=== PATIENT | female | born 1980 | race Caucasian/White ===

== ENCOUNTER → 2018-11-04 | Outpatient (CLI) | payer BC ==
--- NOTE | 2018-11-04 16:56 | XR ---
EXAMINATION TYPE: XR Hip Limited LT DATE OF EXAM: 11/04/2018 COMPARISON: NONE HISTORY: Pain TECHNIQUE: 2 views submitted FINDINGS: There is no evidence of erosive change or acute fracture. Mild concentric narrowing of the joint space. There is hypertrophic change of the acetabulum. IMPRESSION: 1. Mild arthropathy. Correlate for femoral acetabular impingement.
== END | disposition home or self-care (01) ==
LOC: RADXRMAIN 14:19
PROVIDERS: ATTEND Physician Assistant Medical
DX: M16.12 Unilateral primary osteoarthritis, left hip (principal); M54.5 Low back pain
CPT/HCPCS: 73501

== ENCOUNTER → 2021-02-07 | Outpatient (CLI) | payer BC ==
--- NOTE | 2021-02-07 15:31 | XR ---
EXAM TYPE: LUMBAR SPINE X RAY SERIES COMPARISON: NONE HISTORY: Pain TECHNIQUE: 4 views are submitted. FINDINGS: Alignment is anatomic. The pedicles are intact. The transverse processes are intact. There is mult ilevel degenerative disc disease with curvature of the spine. Incidental note made of a port catheter . Severe degenerative disc disease L3-L4 with multilevel facet arthropathy. IMPRESSION: 1. Multilevel facet arthropathy and moderate to severe degenerative disc disease.
--- NOTE | 2021-02-07 15:32 | XR ---
EXAMINATION TYPE: XR thoracic spine 2V DATE OF EXAM: 02/07/2021 COMPARISON: NONE HISTORY: Pain TECHNIQUE: 3 views submitted FINDINGS: Alignment is anatomic. There is no compression deformities. There is a severe scoliotic curvature of the spine with multilevel hypertrophic and degenerative changes. Next IMPRESSION: Scoliosis with degenerative disc disease.
== END | disposition home or self-care (01) ==
LOC: RADXRMAIN 14:22
PROVIDERS: ATTEND Physician Assistant Medical
DX: M47.816 Spondylosis without myelopathy or radiculopathy, lumbar region (principal); M51.36 Other intervertebral disc degeneration, lumbar region; M51.34 Other intervertebral disc degeneration, thoracic region; M41.84 Other forms of scoliosis, thoracic region
CPT/HCPCS: 72070; 72110

== ENCOUNTER → 2021-06-27 | Outpatient (CLI) | payer BC ==
--- NOTE | 2021-06-30 11:03 | MM ---
Reason for exam: screening (asymptomatic). Baseline mammogram. History: Patient is nulliparous. Took hormonal contraceptives beginning at age 15. Taking other hormone beginning at age 36. Physical Findings: Nurse did not find any significant physical abnormalities on exam. MG 3D Screening Mammo W/Cad Bilateral CC and MLO view(s) were taken. There are scattered fibroglandular densities. There is no discrete abnormality. ASSESSMENT: Negative, BI-RAD 1 RECOMMENDATION: Routine screening mammogram of both breasts in 1 year.
== END | disposition home or self-care (01) ==
LOC: RADMAMWWP 14:24
PROVIDERS: ATTEND Obstetrics & Gynecology
DX: Z12.31 Encounter for screening mammogram for malignant neoplasm of breast (principal)
CPT/HCPCS: 77063; 77067

== ENCOUNTER → 2023-10-13 | Outpatient (CLI) | payer OTHER | END | disposition home or self-care (01) | LOC: LABWHC1 10:38 | PROVIDERS: ATTEND Psychiatry & Neurology Neurology | DX: R20.0 Anesthesia of skin (principal); R20.2 Paresthesia of skin | CPT/HCPCS: 36415; 82607; 82746 ==

== ENCOUNTER → 2023-10-13 | Outpatient (CLI) | payer OTHER ==
[2023-10-13 14:43] LABS: BUN/Creat Ratio 17.11 Ratio (12.00-20.00); Blood Urea Nitrogen 15.4 mg/dL (9.0-27.0); Carbon Dioxide 24.3 mmol/L (21.6-31.8); Chloride 100 mmol/L (96-109); Glucose 101 mg/dL (70-110); Potassium 4.3 mmol/L (3.5-5.5); Sodium 139 mmol/L (135-145)
[2023-10-13 14:46] LABS: Basophils # (A) 0.04 X 10*3/uL (0.00-0.10); Basophils % (A) 0.7 %; Eosinophils # (A) 0.08 X 10*3/uL (0.04-0.35); Eosinophils % (A) 1.5 %; HCT 39.7 % (37.2-46.3); HGB 13.1 g/dL (12.0-15.0); Lymphocytes # (A) 1.48 X 10*3/uL (0.90-5.00); Lymphocytes % (A) 26.9 %; MCH 33.8 pg (27.0-32.0); MCV 102.3 FL (80.0-97.0); Mean Platelet Volume 11.2 FL (9.5-12.2); Monocytes # (A) 0.41 X 10*3/uL (0.20-1.00); Monocytes % (A) 7.5 %; NRBC Per 100 WBC 0 X 10*3/uL (0.00-0.01); Neutrophils # (A) 3.47 X 10*3/uL (1.80-7.70); Platelet Count 176 X 10*3/uL (140-440); RBC 3.88 X 10*6/uL (4.10-5.20); RDW 14.7 % (11.5-14.5)
[2023-10-13 15:12] LABS: INR 1.02 sec (0.93-1.11)
== END | disposition home or self-care (01) ==
LOC: LABPAT 10:28
PROVIDERS: ATTEND Orthopaedic Surgery
DX: Z01.818 Encounter for other preprocedural examination (principal); M17.12 Unilateral primary osteoarthritis, left knee; Z22.322 Carrier or suspected carrier of Methicillin resistant Staphylococcus aureus
CPT/HCPCS: 36415; 80048; 85025; 85610; 87070; 93005

== ENCOUNTER → 2023-11-05 | Outpatient (CLI) | payer OTHER ==
--- NOTE | 2023-11-05 10:24 | XR ---
EXAMINATION TYPE: XR scoliosis survey DATE OF EXAM: 11/05/2023 10:15 AM CLINICAL INDICATION:Female, 43 years old with history of M41.35 SCOLIOSIS; [facility] COMPARISON: 02/07/2021 TECHNIQUE: Frontal and lateral views of the spine while standing. FINDINGS: Severe S-shaped scoliosis of the spine with dextroscoliosis thoracic spine with Duong angle 62 degrees and levoscoliosis lumbar spine with Duong angle 45 degrees. No vertebral anomalies. The vertebral bod y heights, intervertebral disc spaces, and vertebral column alignment are well maintained. No evidenc e of spondylolysis or spondylolisthesis. The lungs are clear. The aortic knob, cardiac apex, and gastric bubble are left-sided. The bowel gas pattern is unremarkable. Injection device is seen projecting over the pelvis compatible with patient' s lap band. No evidence of fracture. IMPRESSION: Progression of scoliosis with S-shaped spine with Duong angle 62 degrees and the thorax and 45 degrees and the lumbar spine.
--- NOTE | 2023-11-05 18:05 | CT ---
EXAMINATION TYPE: CT thor lumbar spine wo con DATE OF EXAM: 11/05/2023 COMPARISON: Radiograph same day HISTORY: 43-year-old female M41.35, BACK PAIN. HX OF SCOLIOSIS AND NEUROPATHY. TECHNIQUE: Contiguous axial scanning of the thoracic and lumbar spine without IV contrast. Coronal an d sagittal reconstructions performed. CT DLP: 2101.80 mGycm Automated exposure control for dose reduction was used. FINDINGS: Marked S-shaped scoliosis of the spine. The degree of curvature makes assessment on sagittal series d ifficult. Scattered dural calcifications in the upper to mid thoracic spine probably sequela of prior infectiou s or inflammatory etiology. Interbody ankylosis T3-T4. Moderate to severe degenerative disc disease L3-L4 and L4-L5 with disc space narrowing, bulging disc, and vacuum phenomenon. Overall moderate especially towards the left at T8-T9 and T9-T10. Multilevel hypertrophic facet arthropathy. Degenerative trace grade 1 anterolisthesis T4-T5. Vertebral body heights are preserved. On the right, the hypertrophic facet arthropathy contributes to variable neuroforaminal stenoses thro ughout but possibly severe at T4-T5, T5-T6, T6-T7, T7-T8, T8-T9. Moderate at T3-T4 and L3-L4. On the left, severe neuroforaminal stenosis at T8-T9, T9-T10, T10-T11, T11-T12. Moderate T2-T3, T3-T4 , T4-T5, L4-L5, and L5-S1. Combination of disc bulge and ligamentum flavum thickening may contribute to moderate to severe spina l canal stenosis at L3-L4 and moderate at L4-L5. Mild at T4-T5 along with a grade 1 anterolisthesis. Lap band device noted. IMPRESSION: 1. MARKED S-SHAPED SCOLIOSIS WITH ASSOCIATED ADVANCED HYPERTROPHIC FACET ARTHROPATHY THROUGHOUT. SCAT TERED MODERATE DEGENERATIVE DISC DISEASE ABOVE. 2. 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 3. MODERATE TO SEVERE SPINAL CANAL STENOSIS AT L3-L4, MODERATE AT L4-L5. MILD AT T4-T5. 4. VARIABLE NEURAL FORAMINAL STENOSES, ESPECIALLY SEVERE ALONG THE SIDES OF CONCAVITY OUTLINED ABO VE. 5. SOME DURAL CALCIFICATIONS WITHIN THE UPPER THORACIC SPINE MAY REFLECT SEQUELA OF PRIOR INFECTION O R INFLAMMATION.
== END | disposition home or self-care (01) ==
LOC: RADCTMAIN 09:29
PROVIDERS: ATTEND Orthopaedic Surgery
DX: M41.35 Thoracogenic scoliosis, thoracolumbar region (principal); M41.85 Other forms of scoliosis, thoracolumbar region; M47.816 Spondylosis without myelopathy or radiculopathy, lumbar region; M43.16 Spondylolisthesis, lumbar region; M48.061 Spinal stenosis, lumbar region without neurogenic claudication; M51.84 Other intervertebral disc disorders, thoracic region
CPT/HCPCS: 72082; 72128; 72131

== ENCOUNTER 2023-11-08 12:13 | Day surgery (SDC) | payer BC, OTHER ==
[2023-11-03 11:05] VITALS: BMI 41.1
--- NOTE | 2023-11-08 06:37 | HP ---
HISTORY AND PHYSICAL DATE OF SURGERY: 11/08/2023. HISTORY OF PRESENT ILLNESS: Morenita Hinton is a 43-year-old patient, who was seen with symptomatic left knee osteoarthritis. We discussed options regarding treatment. She elected to proceed with left total knee arthroplasty. Consent was obtained. Clearance was provided by Mary Carmen Johnson, nurse practitioner. PAST MEDICAL HISTORY: Osteoarthritis. PAST SURGICAL HISTORY: Left knee arthroscopy, wrist surgery, lap band surgery. DAILY MEDICATIONS: Trazodone. ALLERGIES: Antihistamine. SOCIAL HISTORY: Denies tobacco use. PHYSICAL EVALUATION OF LEFT KNEE: The left knee range of motion is -1/220 degrees. Mild effusion. Tenderness along lateral joint line. Lateral crepitus with range of motion. Ligaments appear stable. There is a genu valgum deformity of the knee. A distal neurovascular exam is intact. IMAGING STUDIES: Radiographs of the left knee reveal severe lateral compartment osteoarthritis. IMPRESSION: Left knee osteoarthritis. PLAN: Left total knee arthroplasty. MMODL / IJN: [id number] /
[~2023-11-08 12:13] MED LIST: LIDOCAINE 1% (10MG/ML) FOR IV START INTRADERMA PRN; TRANEXAMIC 1,000 MG/100ML-NACL 1,000 MG in SALINE 1 100ML.BAG IVPB PRN
[2023-11-08 12:51] LABS: Glucose,Whole Blood 112 mg/dL (70-110)
[2023-11-08] MEDS: DEXAMETHASONE SOD PHOSPHATE 4 MG/ML 1 ML VIAL IV ONE (12:57)
[2023-11-08] MEDS: ONDANSETRON 4 MG/2 ML VIAL IVP ONE (12:57)
[2023-11-08] MEDS: MELOXICAM 7.5 MG TAB PO PRN (12:59)
[2023-11-08] MEDS: ACETAMINOPHEN TAB 500 MG TAB PO PRN (12:59)
[2023-11-08] MEDS: LACTATED RINGERS 1,000 ML IV SCH ×3 (13:01→18:51)
[2023-11-08] MEDS: IV FLUID CONTINUATION 1,000 ML IV ONE (13:01)
[2023-11-08] MEDS: MIDAZOLAM 2 MG/2 ML VIAL IVP ONE (13:35)
[2023-11-08] MEDS ORDERED: fentaNYL (PF) 50 MCG/ML 2 ML AMP ONE (14:45)
[2023-11-08] MEDS ORDERED: NEOSTIGMINE 1 MG/ML 10 ML VIAL ONE (14:45)
[2023-11-08] MEDS ORDERED: KETAMINE HCL IN 0.9 % NACL 50 MG/5 ML SYRINGE ONE (14:45)
[2023-11-08] MEDS ORDERED: ROPIVACAINE 5 MG/ML 30 ML VIAL ONE (14:45)
[2023-11-08] MEDS ORDERED: MIDAZOLAM 2 MG/2 ML VIAL ONE (14:45)
[2023-11-08] MEDS ORDERED: GLYCOPYRROLATE 0.2 MG/ML 2 ML VIAL ONE (14:45)
[2023-11-08] MEDS ORDERED: HYDROmorphone (PF) 1 MG/ML ONE (14:45)
[2023-11-08] MEDS ORDERED: LIDOCAINE 1% INJ 10MG/ML (20 ML MDV) ONE (14:45)
[2023-11-08] MEDS ORDERED: DEXAMETHASONE SOD PHOSPHATE 4 MG/ML 1 ML VIAL ONE (14:45)
[2023-11-08] MEDS ORDERED: ROCURONIUM 10 MG/ML (5 ML VIAL) IV ONE (14:45)
[2023-11-08] MEDS ORDERED: SUCCINYLCHOLINE CHLORIDE 200 MG/10 ML VIAL IV ONE (14:45)
[2023-11-08] MEDS ORDERED: PROPOFOL 10 MG/ML 20 ML VIAL IV ONE (14:45)
[2023-11-08] MEDS ORDERED: TRANEXAMIC 1,000 MG/100ML-NACL PREMIX BAG ONE (14:45)
[2023-11-08] MEDS: ceFAZolin 1,000 MG in SODIUM CHLORIDE 0.9% 1,000 ML IRRIGATION ONE ×2 (15:14→15:16)
[2023-11-08] MEDS: LACTATED RINGERS 1,000 ML IV ONE (15:52)
[2023-11-08] MEDS ORDERED: HYDROmorphone 0.5 MG/0.5 ML SYRINGE IVP PRN ×2 (16:38)
[2023-11-08] MEDS ORDERED: NALOXONE 0.4 MG/ML 1 ML VIAL IV PRN (16:38)
[2023-11-08] MEDS ORDERED: ONDANSETRON 4 MG/2 ML VIAL IVP PRN (16:38)
[2023-11-08] MEDS ORDERED: HYDROcodone/APAP 5-325MG 1 EACH TAB PO PRN (16:38)
--- NOTE | 2023-11-08 16:38 | P.OP ---
Date of Procedure: 11/08/23 Preoperative Diagnosis: Left knee osteoarthritis Postoperative Diagnosis: Left knee osteoarthritis Procedure(s) Performed: Left total knee arthroplasty Implants: 1. DePuy attune size 6 left cruciate retaining cemented femur 2. DePuy attune size 6 fixed-bearing cemented tibial baseplate 3. DePuy attune size 6 fixed-bearing cruciate retaining 8 mm polyethylene tibial insert 4. DePuy attune 38 mm all polyethylene cemented patella Anesthesia: GETA, regional (Adductor canal catheter, iPAQ block) Surgeon: Harsh Whittaker Us Marketing Director #1: Geovanny Lowe Estimated Blood Loss (ml): 35 Pathology: none sent Condition: stable Disposition: PACU Indications for Procedure: 43-year-old patient seen with symptomatic left knee osteoarthritis. After having treatment options discussed, she elected to proceed with total knee arthroplasty. Operative Findings: See description of procedure Description of Procedure: Patient was taken to the operative suite after having an adductor canal catheter placed by the department of anesthesia. Patient underwent a general anesthetic by the department of anesthesia. Patient was given preoperative IV intake antibiotics and TXA. A well-padded tourniquet was placed about the left lower extremity. The lower extremity was then prepped and draped in the normal sterile orthopedic fashion. The extremity was elevated, a tourniquet was insufflated to 300. A standard anterior incision was made sharply through skin. Dissection was taken down through the subcutaneous soft tissues down to the extensor mechanism. A medial arthrotomy was performed, patella was everted and knee was flexed. There was advanced osteoarthritis noted. I introduced my distal intramedullary femoral drill. I then introduced the distal femoral cutting jig. Geovanny LUCIANO secured the cutting jig with 2 pins. I held retractors in position while Geovanny LUCIANO performed the distal femoral resection through the guide area we now removed her distal femoral cutting guide. We now placed our 4-in-1 femoral cutting block and positioned and it was secured with 2 pins by Geovanny LUCIANO while I held the block in position. The distal femoral finishing was now completed. A proximal tibial cutting guide was positioned. I held the guide in the appropriate position with both hands while Geovanny LUCIANO inserted stabilizing pins into the guide. Proximal tibial cut was made. We now placed a trial femoral component into position, along with an appropriate size tibial tray and insert. We now took the knee through range of motion and had full extension good flexion and good overall soft tissue balance noted. The patella was everted and stabilized with 2 towel clips held by Geovanny LUCIANO while I performed a flush with patellar quad tendon utilizing a fresh sawblade. We templated the patella, appropriate drill holes were made. An appropriate trial patella was positioned, knee was taken through full range of motion with the patella tracking very nicely. The trial patella was removed. Drill holes were made through the femoral component. All trial components were removed after marking off the appropriate rotation of the tibia. Retractors were now positioned along the proximal tibia. An appropriate keel punch was made with the appropriate size tibial guide by myself on Geovanny LUCIANO assisted by holding retractors. At this point appropriate size implants were chosen and opened. The joint was irrigated copiously with pulse lavage mechanical irrigation. The posterior capsule was infiltrated with local analgesic. The wound was irrigated with pulse lavage mechanical irrigation. We mixed antibiotic methylmethacrylate. We placed the knee into flexion. We placed multiple retractors assisted by Geovanny LUCIANO to expose the proximal tibia. Once the methyl methacrylate was ready, the tibial component was cemented into place removing any excess methylmethacrylate form by both myself and Geovanny LUCIANO. The femoral component was cemented into place removing the removing any excess methylmethacrylate performed by both myself and Geovanny LUCIANO. We then inserted the appropriate size polyethylene tibial insert. We made sure that it was locked into position. We took the knee into full extension, and then back in a flexion making sure we had removed any excess methylmethacrylate. The patellar component was then cemented down and secured with clamp. Excess methylmethacrylate removed. We kept the knee in full extension, patellar clamp in position until methylmethacrylate had hardened. Once it had hardened the patellar clamp was removed. The knee was taken through full range of motion. The patella tracked nicely. There was good soft tissue balancing. The tourniquet was now released. Additional hemostasis was achieved via electrocautery. A second gram of TXA was given. The wound again was irrigated with pulse lavage mechanical irrigation. The extensor mechanism was repaired with Ethibond suture. We checked the repair with range of motion and it was stable. The subcutaneous soft tissues were repaired with Vicryl in layers. The skin was approximated with pernio/Dermabond. Sterile dressings were applied f ollowed by loose web roll and Ruddy bandage. The patient was transferred to a bed, and taken to recovery in stable and satisfactory condition. Geovanny LUCIANO assisted with this complex procedure.
[2023-11-08] MEDS: HYDROmorphone 0.5 MG/0.5 ML SYRINGE IVP PRN (17:27)
[2023-11-08] MEDS: ROPIVACAINE 1,100 MG, SODIUM CHLORIDE 0.9% 500 ML 330 ML, EMPTY PAIN BALL 1 EACH MISCELLANE PRN (17:40)
--- NOTE | 2023-11-08 18:10 | XR ---
Left knee. HISTORY: Portable operative evaluation post total knee replacement. TECHNIQUE: 2 portable intraoperative films of the left knee were obtained. FINDINGS: There is a total left knee prosthesis in anatomic alignment. There is no acute fracture. IMPRESSION:: Satisfactory appearance to the total left knee replacement
[2023-11-08] MEDS: droPERidol 5 MG/2 ML VIAL IVP ONE (18:16)
[2023-11-08] MEDS ORDERED: ACETAMINOPHEN TAB 325 MG TAB PO PRN (18:46)
[2023-11-08] MEDS: SENNOSIDES-DOCUSATE SODIUM 1 EACH TAB PO SCH (19:45)
[2023-11-08] MEDS: PANTOPRAZOLE 40 MG TABLET PO STA (19:45)
[2023-11-08] MEDS: HYDROcodone/APAP 10-325MG 1 EACH TAB PO PRN (19:45)
--- NOTE | 2023-11-08 20:19 | P.ANPRN ---
Procedure Note - Anesthesia - Nerve Block Performed Left Adductor Canal Infusion Time Out Performed: Yes Date of Procedure: 11/08/23 Procedure Start Time: 13:35 Procedure Stop Time: 13:47 Location of Patient: PreOp Indication: Acute Post-Operative Pain, Requested by Surgeon Sedation Type: Sedate with meaningful contact maintained Preparation: Sterile Prep, Sterile Dressing Position: Supine Catheter: Indwelling Needle Types: Pajunk Needle Gauge: 21 Ultrasound used to visualize needle placement: Yes Ultrasound used to observe medication spread: Yes Blood Aspirated: No Pain Paresthesia on Injection Noted: No Resistance on Injection: Normal Image Stored and Saved: Yes Events: Uneventful and Well Tolerated (In 0.5% 20 cc plus dexamethasone 4 mg)
--- NOTE | 2023-11-08 20:21 | P.ANPRN ---
Procedure Note - Anesthesia - Nerve Block Performed Left Fidencio Single Time Out Performed: Yes Date of Procedure: 11/08/23 Procedure Start Time: 13:48 Procedure Stop Time: 13:52 Location of Patient: PreOp Indication: Acute Post-Operative Pain, Requested by Surgeon Sedation Type: Sedate with meaningful contact maintained Preparation: Sterile Prep Position: Supine Needle Types: Pajunk Needle Gauge: 21 Ultrasound used to visualize needle placement: Yes Ultrasound used to observe medication spread: Yes Blood Aspirated: No Pain Paresthesia on Injection Noted: No Resistance on Injection: Normal Image Stored and Saved: Yes Events: Uneventful and Well Tolerated (Ropivacaine 0.5% 25 cc plus dexamethasone 4 mg)
[2023-11-08] MEDS: HYDROmorphone 1 MG/ML 1 ML SYRINGE IVP PRN (21:50)
[2023-11-09 02:25] VITALS: RESP 14
[2023-11-09] MEDS: PANTOPRAZOLE 40 MG TABLET PO SCH (06:33)
--- NOTE | 2023-11-09 07:08 | P.PN ---
Progress Note - Text 11/09/23 623am 41-year-old female status post total knee replacement by Dr. Whittaker. Patient has an On-Q pump for postop pain control with a solution running at 8 cc with a VAS of 5. Plan to continue On-Q pump infusion
[2023-11-09 08:24] VITALS: BP 122/82; PULSE 77; TEMP 98.4
[2023-11-09 08:57] LABS: HCT 37.1 % (37.2-46.3); HGB 12.1 g/dL (12.0-15.0); MCH 34.4 pg (27.0-32.0); MCHC 32.6 g/dL (32.0-37.0); MCV 105.4 FL (80.0-97.0); Mean Platelet Volume 12.4 FL (9.5-12.2); NRBC Per 100 WBC 0 X 10*3/uL (0.00-0.01); RBC 3.52 X 10*6/uL (4.10-5.20); RDW 14.5 % (11.5-14.5); WBC 7.36 X 10*3/uL (4.50-10.00)
[2023-11-09] MEDS ORDERED: MULTIVITAMINS, THERA 1 EACH TAB PO SCH (09:00)
[2023-11-09 09:31] LABS: Basophils # (A) 0.01 X 10*3/uL (0.00-0.10); Basophils % (A) 0.1 %; Eosinophils # (A) 0 X 10*3/uL (0.04-0.35); Eosinophils % (A) 0 %; Lymphocytes # (A) 0.51 X 10*3/uL (0.90-5.00); Lymphocytes % (A) 6.9 %; Macrocytosis (M) 2+; Monocytes # (A) 0.35 X 10*3/uL (0.20-1.00); Monocytes % (A) 4.8 %; Neutrophils # (A) 6.43 X 10*3/uL (1.80-7.70); Neutrophils % (A) 87.4 %
[2023-11-09] MEDS: MULTIVITAMINS, THERA 1 EACH TAB PO SCH (09:32)
[2023-11-09] MEDS: ENOXAPARIN 30 MG/0.3 ML SYRINGE SQ SCH (09:34)
--- NOTE | 2023-11-09 09:47 | P.PN ---
Subjective Progress Note Date: 11/09/23 Principal diagnosis: Left knee osteoarthritis Patient was seen at bedside this morning sitting up in chair with legs elevated and dressing present over left knee. Patient says she did do well with therapy this morning. Patient says she is looking forward to going home. Patient says she does have a walker at home. Patient says normally she does take Tram for pain which has been ongoing for the past couple decades. She says she does have a history of back pain. Patient says she has had a small bowel movement since surgery yesterday. Patient says she has been urinating every few hours without issue. Patient denies chest pain, fever, shortness of breath, nausea, vomiting, change in vision, loss of bowel/bladder control. Objective - Vital Signs Vital signs: Vital Signs Temp 98.4 F 11/09/23 06:40 Pulse 77 11/09/23 06:40 Resp 14 11/09/23 06:40 BP 122/82 11/09/23 06:40 Pulse Ox 96 11/09/23 06:40 FiO2 Intake & Output 11/08/23 11/09/23 11/09/23 18:59 06:59 18:59 Intake Total 1751 Output Total 35 Balance 1716 Weight 114.1 kg 114.1 kg Intake: IV 1751 Output: Estimated Blood Loss 35 Other: # Voids 4 - Exam Left knee: Incision is clean, dry, and intact. The silver foam dressing is in good condition. There is minimal soft tissue swelling and ecchymosis surrounding the medial and lateral aspects of the incision. Calf is soft, no tenderness with palpation. Plantar flexion, dorsiflexion, EHL, FHL are intact. Sensory exam to light touch throughout the extremity is intact, dorsal pedis pulses 2+. - Labs CBC & Chem 7: 11/09/23 03:46 Labs: Abnormal Lab Results - Last 24 Hours (Table) 11/08/23 11/09/23 Range/Units 12:50 03:46 RBC 3.52 L (4.10-5.20) X 10*6/uL Hct 37.1 L (37.2-46.3) % MCV 105.4 H (80.0-97.0) FL MCH 34.4 H (27.0-32.0) pg Plt Count 89 L (140-440) X 10*3/uL MPV 12.4 H (9.5-12.2) FL Immature Gran # 0.06 H (0.00-0.04) X 10*3/uL Lymphocytes # 0.51 L (0.90-5.00) X 10*3/uL Eosinophils # 0 L (0.04-0.35) X 10*3/uL Macrocytosis (manual) 2+ A POC Glucose (mg/dL) 112 H (70-110) mg/dL Assessment and Plan Assessment: 1. Left knee osteoarthritis -Postop day 1 status post left total knee arthroplasty Plan: 1. Left knee osteoarthritis -left total knee arthroplasty performed yesterday, 11/08/2023. Patient stable at bedside this morning. Patient did do well with therapy this morning. Patient does have a walker for home. Discharge home today with health services. 2. Appreciate medical management 3. Pain management -Percocet 4. DVT prophylaxis -Lovenox in hospital. Going home with aspirin 81 mg twice daily x 4 weeks 5. GI prophylaxis - senna 6. PT/OT -weightbearing as tolerated with walker 7. Encourage incentive spirometer use 8. Discharge planning -home today with health services Time with Patient: Less than 30
--- NOTE | 2023-11-09 09:52 | P.DS ---
Providers Date of admission: 11/08/2023 Expected date of discharge: 11/09/23 Attending physician: Harsh Whittaker Consults: 11/08/23 16:38 Consult Physician Routine Consulting Provider: Karlos Redd Consult Reason/Comments: Medical management Do you want consulting provider notified?: Yes Primary care physician: Concepcion Connolly Hospital Course: Date of admission: 11/08/2023 Date of discharge: 11/09/2023 Admission diagnosis: Left knee osteoarthritis Discharge diagnosis: Same Attending physician: Dr. Whittaker Surgical procedures: Left total knee arthroplasty Brief history: Patient is a 43-year-old female with a history of progressive primary left knee osteoarthritis. At this point patient has failed conservative treatment measures and has opted to proceed with a elective left total knee arthroplasty. Hospital course: Details of patient's surgery can be found in operative report. Patient tolerated the procedure well and was subsequently transported to orthopedic floor. Patient's orthopeidc and medical care was provided daily. Patient had daily laboratory tests performed for evaluation of overall blood counts. Patient had daily physical therapy to include strengthening range of motion as well as education with walker ambulation. Patient was treated with Lovenox for their postoperative DVT prophylaxis during their inpatient stay. Patient was noted to have a relatively uneventful postoperative course. Patient reported satisfactory pain control with oral pain medications by postoperative day 1. Patient showed satisfactory progress with physical therapy. Patient moved steadily through the program and had no difficulty meeting the goals by postoperative day 1. Given patient's otherwise satisfactory course and having met physical therapy goals, plan is to discharge patient home with health services on postoperative day 1. Discharge condition/disposition: Patient will be discharged home with health services in stable condition. Discharge medications: Instructions are given on resumption of patient's normal daily medications per primary care recommendation, in addition patient will be prescribed Percocet; aspirin 81 mg twice daily x 4 weeks. Discharge instructions: 1. Wound care and infection precautions, keep incision dry and covered while showering, no lotions, creams, moisturizers. No soaking, tubs, pools, hottubs. Do not scrub over the incision. 2. Weight-bear as tolerated with walker / cane until follow-up. 3. Ice and elevate when necessary. Do not exceed 20 minutes per hour with ice pack. 4. Utilize compression sleeve until seen at first follow up appointment. 5. Visiting nursing care. 6. Home physical therapy including home CPM. 7. Pain meds and anticoagulants per prescription. 8. Pain medication has potential to cause constipation. Increase oral fluid and fiber intake. Contact primary care provider if you have not had a bowel movement within 48 hours after discharge 9. No anti-inflammatory medication until discussed at first post operative visit, this including Motrin, Aleve, Mobic, Diclofenac. 10. Follow up in office at 2 weeks postop with Srinivasa Ortiz PA-C / Geovanny Lowe PA-C 11. Follow up with your primary care doctor 7-10 days after discharge. 12. Contact [facility] with any questions, . Assessment: Left knee osteoarthritis Procedures: Left total knee arthroplasty Patient Condition at Discharge: Good Plan - Discharge Summary Discharge Rx Participant: No New Discharge Prescriptions: New oxyCODONE HCL/ACETAMINOPHEN [Percocet 5-325 mg] 1 tab PO Q6HR PRN #28 tab PRN Reason: Pain Aspirin [Adult Low Dose Aspirin EC] 81 mg PO BID #60 tab No Action Ibuprofen [Motrin] 800 mg PO Q8H PRN PRN Reason: Pain HYDROcodone/APAP 7.5-325MG [[place] 7.5-325] 1 tab PO Q4-6H PRN PRN Reason: Pain Multivitamins, Thera [Multivitamin (formulary)] 1 tab PO DAILY Gabapentin [Neurontin] 100 mg PO DAILY traMADol HCL 50 mg PO BID PRN PRN Reason: Pain hydroCHLOROthiazide 25 mg PO DAILY diazePAM 10 mg PO DIRECTED PRN PRN Reason: Muscle Spasm Vitamin B-50 1 tab PO Q7D Acetaminophen [Tylenol Extra Strength] 500 - 1,000 mg PO Q4-6H PRN PRN Reason: Pain Discharge Medication List Ibuprofen [Motrin] 800 mg PO Q8H PRN 04/17/16 [History] Acetaminophen [Tylenol Extra Strength] 500 - 1,000 mg PO Q4-6H PRN 11/03/23 [History] Gabapentin [Neurontin] 100 mg PO DAILY 11/03/23 [History] HYDROcodone/APAP 7.5-325MG [[place] 7.5-325] 1 tab PO Q4-6H PRN 11/03/23 [History] Multivitamins, Thera [Multivitamin (formulary)] 1 tab PO DAILY 11/03/23 [History] Vitamin B-50 1 tab PO Q7D 11/03/23 [History] diazePAM 10 mg PO DIRECTED PRN 11/03/23 [History] hydroCHLOROthiazide 25 mg PO DAILY 11/03/23 [History] traMADol HCL 50 mg PO BID PRN 11/03/23 [History] Aspirin [Adult Low Dose Aspirin EC] 81 mg PO BID #60 tab 11/09/23 [Rx] oxyCODONE HCL/ACETAMINOPHEN [Percocet 5-325 mg] 1 tab PO Q6HR PRN #28 tab 11/09/23 [Rx] Follow up Appointment(s)/Referral(s): Preston Ortiz PAC [PHYSICIAN SHUTTLE ROUTE VEHICLE OPERATOR] - 2 Weeks Patient Instructions/Handouts: Knee Replacement (DC), Knee Replacement (GEN) Activity/Diet/Wound Care/Special Instructions: Orthopedic Discharge Instructions: 1. Wound care and infection precautions, keep incision dry and covered while showering, no lotions, creams, moisturizers. No soaking, pools, hot tubs. Do not scrub over incision. 2. Weight-bear as tolerated with walker / cane until follow-up. 3. Ice and elevate when necessary. Do not exceed 20 minutes per hour with ice pack. 4. Utilize compression sleeve until seen at first follow up appointment. 5. Pain meds and anticoagulants per prescription. 6. Pain medication has potential to cause constipation. Increase oral fluid and fiber intake. Contact primary care provider if you have not had a bowel movement within 48 hours after discharge. 7. No anti-inflammatory medication until discussed at first post operative visit, this including Motrin, Aleve, Mobic, Diclofenac. 8. Follow up in office at 2 weeks postop with Srinivasa Ortiz PA-C / Geovanny Lowe PA-C 9. Follow up with your primary care doctor 7-10 days after discharge. 10. Contact [facility] with any questions, . Keep incision clean, dry, intact. While showering, cover silver foam dressing with Saran wrap. Keep silver foam dressing on until 11/15/2023. Once dressing is removed, it is okay to shower directly over the incision. Discharge Disposition: HOME WITH HOME HEALTH SERVICES
[2023-11-09 10:04] LABS: BUN/Creat Ratio 19.38 Ratio (12.00-20.00); Blood Urea Nitrogen 15.5 mg/dL (9.0-27.0); Calcium 9.6 mg/dL (8.7-10.3); Carbon Dioxide 23.1 mmol/L (21.6-31.8); Chloride 98 mmol/L (96-109); Glucose 124 mg/dL (70-110); Magnesium 1.6 mg/dL (1.5-2.4); Potassium 4.6 mmol/L (3.5-5.5); Sodium 134 mmol/L (135-145)
[2023-11-09] MEDS: GABAPENTIN 100 MG CAP PO SCH (12:01)
[2023-11-09] MEDS: oxyCODONE-APAP 5-325MG 1 EACH TAB PO PRN (12:05)
--- NOTE | 2023-11-09 15:00 | P.CONS ---
History of Present Illness - Reason for Consult Consult date: 11/09/23 - History of Present Illness This is a pleasant 43-year-old female with medical history significant for anxiety, former smoker, hypertension, obesity, scoliosis and lumbar radiculopathy from the scoliosis. Patient comes into the hospital for a scheduled left knee arthroplasty and she is evaluated today postoperative day # 1. Patient is maintained on hydrochlorothiazide daily her blood pressure postoperatively is this morning 122/82. Patient states she has been low outpatient as well and agreeing with holding this medication for now. She follows closely with neurology office outpatient regarding her radiculopathy and has been taken off the gabapentin and is scheduled to undergo EMG testing outpatient once she recovers from her left knee. Today her pain is controlled about 4.10. She is not complaining of any chest pain, any shortness of breath. She has been tolerating diet and passing gas. She worked with physical therapy and was cleared for discharge home. REVIEW OF SYSTEMS: CONSTITUTIONAL: No fever, no malaise, no fatigue. HEENT: No recent visual problems or hearing problems. Denied any sore throat. CARDIOVASCULAR: No chest pain, orthopnea, PND, no palpitations, no syncope. PULMONARY: No shortness of breath, no cough, no hemoptysis. GASTROINTESTINAL: No diarrhea, no nausea, no vomiting, no abdominal pain. NEUROLOGICAL: No headaches, no weakness, no numbness. HEMATOLOGICAL: Denies any bleeding or petechiae. GENITOURINARY: Denies any burning micturition, frequency, or urgency. MUSCULOSKELETAL/RHEUMATOLOGICAL: Denies any joint pain, swelling, or any muscle pain. ENDOCRINE: Denies any polyuria or polydipsia. The rest of the 14-point review of systems is negative. PHYSICAL EXAMINATION: GENERAL: The patient is alert and oriented x3, not in any acute distress. Well developed, well nourished. HEENT: Pupils are round and equally reacting to light. EOMI. No scleral icterus. No conjunctival pallor. Normocephalic, atraumatic. No pharyngeal erythema. No thyromegaly. CARDIOVASCULAR: S1 and S2 present. No murmurs, rubs, or gallops. PULMONARY: Chest is clear to auscultation, no wheezing or crackles. ABDOMEN: Soft, nontender, nondistended, normoactive bowel sounds. No palpable organomegaly. MUSCULOSKELETAL: No joint swelling or deformity. EXTREMITIES: No cyanosis, clubbing, or pedal edema. NEUROLOGICAL: Gross neurological examination did not reveal any focal deficits. SKIN: No rashes. Assessment and plan Osteoarthritis history patient is now postoperative day #1 left knee arthroplasty History of obesity Hx of scoliosis and lumbar radiculopathy has been taken off gabapentin outpatient and will remain off on discharge History of hypertension patient has been normotensive here and outpatient will hold this medication History of anxiety History of tobacco use GI prophylaxis DVT prophylaxis as per primary recommending 81 mg BID for the next 30 days. Full code Medically patient is stable for discharge home. Continue incentive spirometer. Continue on bowel regimen while on narcotics or pain management. Thank you kindly for this consultation. The impression and plan of care has been dictated by Stacey John, Nurse Practitioner as directed. Dr. Selene MD I have performed a history and physical examination and medical decision making of this patient, discussed the same with the dictator, and agree with the dictators assessment and plan as written, documented as a scribe. Based on total visit time, I have performed more than 50% of this visit. Past Medical History Past Medical History: Pneumonia Additional Past Medical History / Comment(s): chronic back pain History of Any Multi-Drug Resistant Organisms: None Reported Past Surgical History: Bariatric Surgery Additional Past Surgical History / Comment(s): Arthroscopic left knee surgery 2011, sinus surgery, ganglion cyst removed, wisdom teeth removed/dental procedure. Past Anesthesia/Blood Transfusion Reactions: Postoperative Nausea & Vomiting (PONV) Additional Past Anesthesia/Blood Transfusion Reaction / Comm: "Wake up in panic attack". Past Psychological History: Anxiety Smoking Status: Former smoker Past Alcohol Use History: Occasional Additional Past Alcohol Use History / Comment(s): Quit smoking at age 24. Quit alcohol May 2023. Past Drug Use History: Marijuana Additional Drug Use History / Comment(s): CBD for pain. Aware no use 24 hrs pr ior to procedure. - Past Family History Mother Family Medical History: Cancer Additional Family Medical History / Comment(s): Colon cancer. Medications and Allergies Home Medications Medication Instructions Recorded Confirmed Type Ibuprofen [Motrin] 800 mg PO Q8H PRN 04/17/16 11/03/23 History Acetaminophen [Tylenol Extra 500 - 1,000 mg PO Q4-6H PRN 11/03/23 11/03/23 History Strength] Gabapentin [Neurontin] 100 mg PO DAILY 11/03/23 11/03/23 History HYDROcodone/APAP 7.5-325MG [[place] 1 tab PO Q4-6H PRN 11/03/23 11/03/23 History 7.5-325] Multivitamins, Thera [Multivitamin 1 tab PO DAILY 11/03/23 11/03/23 History (formulary)] Vitamin B-50 1 tab PO Q7D 11/03/23 11/03/23 History diazePAM 10 mg PO DIRECTED PRN 11/03/23 11/03/23 History hydroCHLOROthiazide 25 mg PO DAILY 11/03/23 11/03/23 History traMADol HCL 50 mg PO BID PRN 11/03/23 11/03/23 History Aspirin [Adult Low Dose Aspirin EC] 81 mg PO BID #60 tab 11/09/23 Rx oxyCODONE HCL/ACETAMINOPHEN 1 tab PO Q6HR PRN #28 tab 11/09/23 Rx [Percocet 5-325 mg] Allergies Allergy/AdvReac Type Severity Reaction Status Date / Time fexofenadine [From Ignacia] Allergy Hallucinati Verified 11/08/23 12:32 ons Antihistamines Allergy Hallucinati Uncoded 11/08/23 12:32 ons Physical Exam Vitals: Vital Signs Temp Pulse Resp BP Pulse Ox 11/09/23 06:40 98.4 F 77 14 122/82 96 11/09/23 02:00 97.8 F 88 14 143/96 94 L 11/08/23 23:46 97.7 F 82 17 149/106 94 L 11/08/23 18:50 97.9 F 74 18 147/100 94 L 11/08/23 18:30 82 16 143/83 97 11/08/23 18:10 85 15 152/94 96 11/08/23 17:55 91 15 152/94 96 11/08/23 17:38 90 17 154/91 92 L 11/08/23 17:23 84 17 140/90 100 11/08/23 17:08 97 F L 94 16 154/100 99 11/08/23 13:40 56 L 16 118/67 98 11/08/23 12:27 97.9 F 90 16 157/101 96 Intake and Output 11/08/23 11/09/23 11/09/23 22:59 06:59 14:59 Intake Total 701 Output Total 35 Balance 666 Intake: IV 701 Output: Estimated Blood Loss 35 Other: # Voids 4 Weight 114.1 kg Results CBC & Chem 7: 11/09/23 03:46 11/09/23 03:46 Labs: Abnormal Lab Results - Last 24 Hours (Table) 11/08/23 11/09/23 Range/Units 12:50 03:46 RBC 3.52 L (4.10-5.20) X 10*6/uL Hct 37.1 L (37.2-46.3) % MCV 105.4 H (80.0-97.0) FL MCH 34.4 H (27.0-32.0) pg Plt Count 89 L (140-440) X 10*3/uL MPV 12.4 H (9.5-12.2) FL Immature Gran # 0.06 H (0.00-0.04) X 10*3/uL Lymphocytes # 0.51 L (0.90-5.00) X 10*3/uL Eosinophils # 0 L (0.04-0.35) X 10*3/uL Macrocytosis (manual) 2+ A POC Glucose (mg/dL) 112 H (70-110) mg/dL Assessment and Plan Time with Patient: Less than 30
== END 2023-11-09 14:52 | disposition home health service (06) ==
LOC: OR 12:13 → 4SSUR 16:47 → OR 11-09 14:52
PROVIDERS: ATTEND Orthopaedic Surgery
DX: M17.12 Unilateral primary osteoarthritis, left knee (principal); G89.18 Other acute postprocedural pain; Z88.8 Allergy status to other drugs, medicaments and biological substances; Z79.899 Other long term (current) drug therapy; Z98.890 Other specified postprocedural states
CPT/HCPCS: 97161; 64999; 64448; 80048; 83735; 85025; 73560; 27447; C1776; C1713 ×2; C1751; J2250; J1100; J0690 ×3; J2405; J1650; J1170 ×3; J2795

== ENCOUNTER → 2023-11-30 | Outpatient (CLI) | payer OTHER ==
--- NOTE | 2023-12-01 23:26 | BD ---
EXAMINATION TYPE: Axial Bone Density DATE OF EXAM: 11/30/2023 CLINICAL HISTORY: 43 years old Female. ICD-10 CODE: M41.34 SCOLIOSIS Height: 64 in Weight: 244 lbs EXAM MEASUREMENTS: Bone mineral densitometry was performed using the [place] System. Bone mineral density as measured about the Lumbar spine is: ----- L1-L4(G/cm2): 1.391 T Score Values are as follows: ----- L1: -0.4 ----- L2: 1.3 ----- L3: 2.2 ----- L4: 3.2 ----- L1-L4: 1.8 Z Score Values are as follows: ----- L1: -1.5 ----- L2: 0.1 ----- L3: 1.0 ----- L4: 2.1 ----- L1-L4: 0.6 Bone mineral density baseline Bone mineral density about the R hip (g/cm2): 1.132 Bone mineral density about the L hip (g/cm2): 1.027 T Score values are as follows: -----R Neck: 0.4 -----L Neck: -0.4 -----R Total: 1.0 -----L Total: 0.2 Z Score values are as follows: -----R Neck: 0.1 -----L Neck: -0.7 -----R Total: 0.4 -----L Total: -0.4 Bone mineral density baseline FRAX%s: The graph provided illustrates a 1.8% chance for a major osteoporotic fx and a 0.0% chance fo r the hips probability for fx in 10 years time. IMPRESSION: Normal (Values between +1 and -1 indicate normal bone mass). Consider repeating this study in 5 year s or sooner if there is some new clinical indication. NOTE: T-SCORE=SD OF THE YOUNG ADULT MEAN.
== END | disposition home or self-care (01) ==
LOC: RADBDWWP 14:25
PROVIDERS: ATTEND Orthopaedic Surgery
DX: M41.34 Thoracogenic scoliosis, thoracic region (principal)
CPT/HCPCS: 77080

== ENCOUNTER → 2023-12-22 | Outpatient (CLI) | payer OTHER ==
--- NOTE | 2023-12-22 14:21 | US ---
EXAMINATION TYPE: US arterial LE single level DATE OF EXAM: 12/22/2023 2:08 PM CLINICAL INDICATION: Female, 43 years old with history of M51.16 INTERVERTEBRAL DISC DISORDER R53.1 W EAKNESS; neuropathy History of: Smoker: N Hypertension: N Diabetic: N Hyperlipidemia: N TIA/CVA: N Previous Vascular Surgery: N CAD: N IA: N Vascular Ulcers: N Claudication: N Gangrene: N Doppler Waveforms: Right: Biphasic waveforms within the posterior tibial and dorsalis pedis arteries. Monophasic wavefor m within the digit. Left: Biphasic waveforms within the posterior tibial and dorsalis pedis arteries. Monophasic waveform within the digit. Right Brachial Pressure: 138 Left Brachial Pressure: 142 Ankle-Brachial Indices: Right: 1.14 Left: 1.15 (Vessel hardening > 1.4; Normal 0.9 - 1.4, Moderate 0.7 - 0.9, Severe 0.5-0.7) NORMAL Toe Brachial Indices: Right: CNO Left: CNO non-occlusive TBIs IMPRESSION: Normal ankle-brachial indices bilaterally.
== END | disposition home or self-care (01) ==
LOC: RADUSWWP 13:27
PROVIDERS: ATTEND Family Medicine
DX: M51.16 Intervertebral disc disorders with radiculopathy, lumbar region (principal); R53.1 Weakness; E78.5 Hyperlipidemia, unspecified; I10 Essential (primary) hypertension; E11.51 Type 2 diabetes mellitus with diabetic peripheral angiopathy without gangrene
CPT/HCPCS: 93922

== ENCOUNTER → 2023-12-28 | Outpatient (CLI) | payer OTHER ==
--- NOTE | 2023-12-28 22:13 | XR ---
EXAMINATION TYPE: XR knee limited LT DATE OF EXAM: 12/28/2023 4:46 PM CLINICAL INDICATION:Female, 43 years old with history of R52 PAIN; COMPARISON: None. TECHNIQUE: XR knee limited LT; examined in Frontal, lateral and oblique projections. FINDINGS: Status post total knee arthroplasty changes with hardware in appropriate alignment and in tact. No evidence of fracture. IMPRESSION: Status post total knee arthroplasty changes with hardware intact and appropriate alignment. No fractu res identified.
== END | disposition home or self-care (01) ==
LOC: RADXRMAIN 16:26
PROVIDERS: ATTEND Orthopaedic Surgery
DX: M25.562 Pain in left knee (principal); Z96.652 Presence of left artificial knee joint

== ENCOUNTER → 2024-06-12 | Outpatient (CLI) | payer OTHER ==
[2024-06-12 17:04] LABS: Erythrocyte Sedimentation Rate 60 mm/Hr (0-20)
[2024-06-12 18:14] LABS: Protein, Total 7.4 g/dL (6.2-8.2)
[2024-06-12 18:25] LABS: BUN/Creat Ratio 22.14 Ratio (12.00-20.00); Blood Urea Nitrogen 15.5 mg/dL (9.0-27.0); Carbon Dioxide 24.8 mmol/L (21.6-31.8); Chloride 96 mmol/L (96-109); Chol/HDL Ratio 1.77 Ratio; Glucose 105 mg/dL (70-110); LDL Cholesterol,Calculated 87.4 mg/dL (0.0-131.0); Potassium 4.4 mmol/L (3.5-5.5); Rheumatoid Factor, Qnt <15 IU/mL (0-15); Sodium 136 mmol/L (135-145); VLDL Calculation 18.62 mg/dL (5.00-40.00)
[2024-06-12 18:26] LABS: ALT 56 U/L (8-44); AST 134 U/L (13-35); Albumin 4.3 g/dL (3.8-4.9); Albumin/Globulin Ratio 1.34 Ratio (1.60-3.17); Alkaline Phosphatase 112 U/L (41-126); Calcium 9.7 mg/dL (8.7-10.3); Globulin 3.2 g/dL (1.6-3.3); Total Bilirubin 0.8 mg/dL (0.3-1.2); Total Protein 7.5 g/dL (6.2-8.2)
[2024-06-12 18:50] LABS: Basophils # (A) 0.06 X 10*3/uL (0.00-0.10); Basophils % (A) 1.1 %; Eosinophils # (A) 0.05 X 10*3/uL (0.04-0.35); HGB 13.9 g/dL (12.0-15.0); Lymphocytes # (A) 0.99 X 10*3/uL (0.90-5.00); Lymphocytes % (A) 18.9 %; MCH 34.8 pg (27.0-32.0); MCHC 33.9 g/dL (32.0-37.0); MCV 102.8 FL (80.0-97.0); Macrocytosis (M) 2+ (None Seen); Mean Platelet Volume 11.5 FL (9.5-12.2); Monocytes # (A) 0.94 X 10*3/uL (0.20-1.00); NRBC Per 100 WBC 0 X 10*3/uL (0.00-0.01); Neutrophils # (A) 3.17 X 10*3/uL (1.80-7.70); Neutrophils % (A) 60.6 %; Platelet Count 170 X 10*3/uL (140-440); RBC 3.99 X 10*6/uL (4.10-5.20); RDW 13.2 % (11.5-14.5); Stomatocytes 2+ (None Seen); WBC 5.23 X 10*3/uL (4.50-10.00)
[2024-06-12 20:40] LABS: Anti-Smith Ab Interp Negative (Negative)
[2024-06-13 11:49] LABS: Zinc, Serum 65 ug/dL (60-130)
[2024-06-13 12:30] LABS: Free Kappa Lt Chain Qnt, Serum 3.54 mg/dL (0.33-1.94); Free Lambda Lt Chain Qnt, Seru 3.54 mg/dL (0.57-2.63)
[2024-06-14 06:49] LABS: Vitamin E (Alpha Tocopherol) 1040 ug/dL (500-1800)
[2024-06-14 08:11] LABS: Vit B1(Thiamine) 60 ug/L (38-122)
== END | disposition home or self-care (01) ==
LOC: LABWHC1 11:20
PROVIDERS: ATTEND Family Medicine
DX: G60.8 Other hereditary and idiopathic neuropathies (principal); G62.9 Polyneuropathy, unspecified; Z98.84 Bariatric surgery status; Z13.0 Encounter for screening for diseases of the blood and blood-forming organs and certain disorders involving the immune mechanism; Z13.29 Encounter for screening for other suspected endocrine disorder
CPT/HCPCS: 36415; 80053; 80061; 82306; 82525; 82607; 82746; 83036; 83883; 84165; 84207; 84425; 84443; 84446; 84630; 85025; 85652; 86038; 86140; 86235; 86431

== ENCOUNTER 2024-06-20 09:22 | Emergency (ER) | payer OTHER ==
[2024-06-20 09:29] VITALS: RESP 18; TEMP 98.6
--- NOTE | 2024-06-20 09:50 | ED ---
Lower Extremity Injury HPI - General Chief Complaint: Extremity Injury, Lower Stated Complaint: L ankle injury Time Seen by Provider: 06/20/24 09:31 Source: patient, RN notes reviewed Mode of arrival: wheelchair Limitations: physical limitation - History of Present Illness Initial Comments: This is a 44-year-old female presenting to the emergency department for chief complaint of left ankle injury. Patient states that yesterday evening she was walking in her basement that therapy reconstructing when she rolled her ankle over a piece of pipe on the basement ground. Patient denies falling or other injuries at the time of the event. States that she has been having difficulty bearing weight since the time of the injury. Denies previous surgeries of the left ankle. States that she took a muscle relaxer yesterday with minimal relief. She denies paresthesias. - Related Data Home Medications Medication Instructions Recorded Confirmed Ibuprofen [Motrin] 800 mg PO Q8H PRN 04/17/16 11/03/23 HYDROcodone/APAP 7.5-325MG [[place] 1 tab PO Q4-6H PRN 11/03/23 11/03/23 7.5-325] Multivitamins, Thera [Multivitamin 1 tab PO DAILY 11/03/23 11/03/23 (formulary)] Vitamin B-50 1 tab PO Q7D 11/03/23 11/03/23 diazePAM 10 mg PO DIRECTED PRN 11/03/23 11/03/23 traMADol HCL 50 mg PO BID PRN 11/03/23 11/03/23 Previous Rx's Medication Instructions Recorded Aspirin [Adult Low Dose Aspirin EC] 81 mg PO BID #60 tab 11/09/23 oxyCODONE HCL/ACETAMINOPHEN 1 tab PO Q6HR PRN #28 tab 11/09/23 [Percocet 5-325 mg] HYDROcodone/APAP 10-325MG [[place] 1 tab PO Q6HR PRN 3 Days #12 tab 06/20/24 10-325] Allergies Allergy/AdvReac Type Severity Reaction Status Date / Time fexofenadine [From Ignacia] Allergy Hallucinati Verified 06/20/24 09:29 ons Antihistamines Allergy Hallucinati Uncoded 06/20/24 09:29 ons Review of Systems ROS Statement: Those systems with pertinent positive or pertinent negative responses have been documented in the HPI. ROS Other: All systems not noted in ROS Statement are negative. Past Medical History Past Medical History: Pneumonia Additional Past Medical History / Comment(s): chronic back pain History of Any Multi-Drug Resistant Organisms: None Reported Past Surgical History: Bariatric Surgery, Orthopedic Surgery Additional Past Surgical History / Comment(s): Arthroscopic left knee surgery 2011, sinus surgery, ganglion cyst removed, wisdom teeth removed/dental procedure, left knee replacement, Past Psychological History: Anxiety Smoking Status: Former smoker Past Alcohol Use History: Occasional Past Drug Use History: Marijuana General Exam Limitations: physical limitation Respiratory exam: Present: normal lung sounds bilaterally. Absent: respiratory distress, wheezes, rales, rhonchi, stridor Cardiovascular Exam: Present: regular rate, normal rhythm, normal heart sounds. Absent: systolic murmur, diastolic murmur, rubs, gallop, clicks GI/Abdominal exam: Present: soft, normal bowel sounds. Absent: distended, tenderness, guarding, rebound, rigid Left Ankle exam: Present: tenderness, swelling, ecchymosis. Absent: normal inspection, full ROM, deformity Foot/Toe exam: Present: normal inspection, full ROM. Absent: tenderness, swelling, abrasion, ecchymosis, deformity Neurovascular tendon exam: Present: no vascular compromise. Absent: pulse deficit, abnormal cap refill, motor deficit, sensory deficit Gait: not tested/not observed Back exam: Present: normal inspection Neurological exam: Present: alert, oriented X3, CN II-XII intact Course Vital Signs 06/20/24 09:24 Temperature 98.6 F Pulse Rate 114 H Respiratory 18 Rate Blood Pressure 166/114 O2 Sat by Pulse 97 Oximetry Procedures - Orthopedic Splinting/Casting Injury #1 Side: left Lower Extremity Injury Location: short leg, ankle Lower Extremity Immobilizer: posterior splint, Ruddy wrap, synthetic pre-padded splint Other Orthopedic Equipment: crutches Medical Decision Making - Medical Decision Making Was pt. sent in by a medical professional or institution (, PA, [employer], urgent care, hospital, or detention...) When possible be specific @ -No Did you speak to anyone other than the patient for history (EMS, parent, family, police, friend...)? What history was obtained from this source @ -No Did you review nursing and triage notes (agree or disagree)? Why? @ -I reviewed and agree with nursing and triage notes Were old charts reviewed (outside hosp., previous admission, EMS record, old EKG, old radiological studies, urgent care reports/EKG's, detention records)? Report findings @ -No old charts were reviewed Differential Diagnosis (chest pain, altered mental status, abdominal pain women, abdominal pain men, vaginal bleeding, weakness, fever, dyspnea, syncope, headache, dizziness, GI bleed, back pain, seizure, CVA, palpatations, mental health, musculoskeletal)? @ -Differential Musculoskeletal Muscular strain, contusion, ligament sprain, fracture, arthritis, septic arthritis, bursitis, cellulitis, muscle spasm, nerve compression, DVT, arterial occlusion, herpes zoster, electrolyte abnormality, tumor.... This is not meant to be in all inclusive list EKG interpreted by me (3pts min.). @ -none X-rays interpreted by me (1pt min.). @ -X-ray of the left ankle remarkable for a mildly displaced acute fracture of the distal fibula CT interpreted by me (1pt min.). @ -None done U/S interpreted by me (1pt. min.). @ -None done What testing was considered but not performed or refused? (CT, X-rays, U/S, labs)? Why? @ -None What meds were considered but not given or refused? Why? @ -None Did you discuss the management of the patient with other professionals (professionals i.e. , PA, [employer], lab, RT, psych nurse, manager social media, software packaging engineer, teacher, logistics supply officer, case fitter)? Give summary @ -No Was smoking cessation discussed for >3mins.? @ -No Was critical care preformed (if so, how long)? @ -No Were there social determinants of health that impacted care today? How? (Homelessness, low income, unemployed, alcoholism, drug addiction, transportation, low edu. Level, literacy, decrease access to med. care, [place] [facility], rehab)? @ -No Was there de-escalation of care discussed even if they declined (Discuss DNR or withdrawal of care, Hospice)? DNR status @ -No What co-morbidities impacted this encounter? (DM, HTN, Smoking, COPD, CAD, Cancer, CVA, ARF, Chemo, Hep., AIDS, mental health diagnosis, sleep apnea, morb id obesity)? @ -None Was patient admitted / discharged? Hospital course, mention meds given and route, prescriptions, significant lab abnormalities, going to OR and other pertinent info. @ -Discharge. 44 year old female presenting with left ankle injury. Found to have lateral malleolus tenderness to palpation and edema with mild ecchymosis. She is neurovascularly intact of the left lower extremity. She is provided with dose of [place]. X-ray concerning for a mildly displaced acute fracture of the distal fibula. Patient is placed in a short leg posterior splint and provided with crutches to maintain nonweightbearing status until follow-up with orthopedic shoe maker. Prescription for [place] 10 sent to patient's pharmacy for pain control. She is recommended to continue to rest, ice, elevate and use pain medicine as needed Undiagnosed new problem with uncertain prognosis? @ -No Drug Therapy requiring intensive monitoring for toxicity (Heparin, Nitro, Insulin, Cardizem)? @ -No Were any procedures done? @ -ortho splinting Diagnosis/symptom? @ -fibular fracture, left Acute, or Chronic, or Acute on Chronic? @ -acute Uncomplicated (without systemic symptoms) or Complicated (systemic symptoms)? @ -uncomplicated Side effects of treatment? @ -No Exacerbation, Progression, or Severe Exacerbation? @ -No Poses a threat to life or bodily function? How? (Chest pain, [place], [place], pneumonia, PE, COPD, DKA, ARF, appy, cholecystitis, CVA, Diverticulitis, Homicidal, Suicidal, threat to staff... and all critical care pts) @ -No Disposition Clinical Impression: Fracture, fibula Disposition: HOME SELF-CARE Condition: Good Instructions (If sedation given, give patient instructions): Ankle Fracture (ED) Additional Instructions: Please return to the Emergency Department if symptoms worsen or any other concerns. Continue nonweightbearing status and keep splint in place until follow-up with orthopedic shoe maker. Continue to keep ankle elevated, rest, ice and use Tylenol Motrin as needed for pain. Prescriptions: HYDROcodone/APAP 10-325MG [[place] 10-325] 1 tab PO Q6HR PRN 3 Days #12 tab PRN Reason: Severe Pain (Scale 7 To 10) Is patient prescribed a controlled substance at d/c from ED?: No Referrals: Concepcion Connolly MD [Primary Care Provider] - 1-2 days Juan Daniel Franz DO [Doctor of Osteopathic Medicine] - 1-2 days Time of Disposition: 10:19
[2024-06-20] MEDS: HYDROcodone/APAP 10-325MG 1 EACH TAB PO ONE (09:53)
--- NOTE | 2024-06-20 10:11 | XR ---
EXAMINATION TYPE: XR ankle complete LT DATE OF EXAM: 06/20/2024 COMPARISON: NONE HISTORY: Pain FINDINGS: Three views of the ankle demonstrate a displaced fracture of the distal fibula. Additional bony dens ity along the inferior margin of the fibula appears corticated and may be related to additional chron ic injury. Marginal spurring of the tibiotalar joint and tiny calcaneal spurs. Generalized mild demineralization . Slight asymmetry of the ankle mortise with slight narrowing along the lateral compartment. There is diffuse soft tissue edema. IMPRESSION: 1. Mildly displaced acute fracture distal fibula. Slight asymmetry of the ankle mortise. [facility], , 06/20/2024 10:09 AM
[2024-06-20 10:57] VITALS: BP 158/89; PULSE 101
== END 2024-06-20 10:57 | disposition home or self-care (01) ==
LOC: EC 09:22
DX: S82.832A Other fracture of upper and lower end of left fibula, initial encounter for closed fracture (principal); Z88.8 Allergy status to other drugs, medicaments and biological substances; Z87.891 Personal history of nicotine dependence; X50.9XXA Other and unspecified overexertion or strenuous movements or postures, initial encounter; Y93.01 Activity, walking, marching and hiking
CPT/HCPCS: 29515; 99283

== ENCOUNTER 2024-06-30 10:32 | Day surgery (SDC) | payer OTHER ==
[~2024-06-30 10:32] MED LIST changes: -LIDOCAINE 1% (10MG/ML) FOR IV START INTRADERMA PRN; +MIDAZOLAM 2 MG/2 ML VIAL IV PRN; +SCOPOLAMINE 1 MG/72 HR PATCH TRANSDERM ONE; -TRANEXAMIC 1,000 MG/100ML-NACL 1,000 MG in SALINE 1 100ML.BAG IVPB PRN
[2024-06-30] MEDS: IV FLUID CONTINUATION 1,000 ML IV ONE (10:52)
[2024-06-30] MEDS: LACTATED RINGERS 1,000 ML IV SCH (11:31)
[2024-06-30] MEDS: DEXAMETHASONE SOD PHOSPHATE 4 MG/ML 1 ML VIAL IV ONE (11:34)
[2024-06-30] MEDS: ONDANSETRON 4 MG/2 ML VIAL IVP ONE (11:34)
[2024-06-30] MEDS: FAMOTIDINE 20 MG/2 ML VIAL IV STA (11:35)
[2024-06-30] MEDS ORDERED: LIDOCAINE 1% INJ 10MG/ML (20 ML MDV) ONE (12:27)
[2024-06-30] MEDS ORDERED: HYDROmorphone (PF) 1 MG/ML ONE (12:27)
[2024-06-30] MEDS ORDERED: MIDAZOLAM 2 MG/2 ML VIAL ONE (12:27)
[2024-06-30] MEDS ORDERED: PROPOFOL 10 MG/ML 20 ML VIAL IV ONE (12:27)
[2024-06-30] MEDS ORDERED: fentaNYL (PF) 50 MCG/ML 2 ML AMP ONE (12:27)
[2024-06-30] MEDS: BUPIVACAINE (PF) 0.25% 30 ML VIAL SQ ONE (12:58)
[2024-06-30] MEDS: ceFAZolin 1,000 MG in SODIUM CHLORIDE 0.9% 1,000 ML IRRIGATION ONE (12:59)
--- NOTE | 2024-06-30 13:50 | P.OP ---
Date of Procedure: 06/30/24 Preoperative Diagnosis: 1. Displaced lateral malleolus fracture left ankle 2. Disruption of the syndesmosis left ankle Postoperative Diagnosis: 1. Same 2. Same Procedure(s) Performed: 1. Open reduction with internal fixation left lateral malleolus fracture 2. Open reduction with internal fixation left syndesmotic rupture Implants: Arthrex Fibulock Nail with 2 distal interlocking screws and 2 syndesmotic screws Anesthesia: LANETTE Surgeon: Barrett Griffin Estimated Blood Loss (ml): 3 Pathology: none sent Condition: stable Disposition: PACU Description of Procedure: The patient was brought into the op room placed on the table in supine position. Timeout was taken to confirm correct patient identifiers, correct laterality of surgery, and correct procedure. Once the staff in the room was in agreement with the timeout, the patient was induced and placed under general anesthesia. A well-padded tourniquet was placed on the left calf and a wedge beneath the left hip to internally rotate the left leg. 20 cc 0.25% Marcaine was injected as a proximal ankle block. The left leg was then prepped and draped in usual manner. The left leg was exsanguinated and the tourniquet inflated to 250 mmHg. Utilizing live fluoroscopy and a metallic wire, landmarks were made delineating the distal end of the fibula, as well as the anterior and posterior dimensions of the distal end of the fibula. Then the wire was used to create a bisection along the fibular shaft. A small incision was made distal to the tip of the lateral malleolus. It was bluntly dissected down to bone. The appropriate guidewire was then inserted at the tip of the lateral malleolus it was advanced into the lateral malleolus to the fracture line. Fluoroscopy was used to make sure that the wire was correctly oriented in the AP and lateral views. Once that was achieved, the wire was advanced deep into the fibular canal. Then a periarticular bone clamp was used to reduce the slight lateral displacement of the fibular fracture. Once fluoroscopy confirmed the near anatomic alignment of the fracture, the large reamer was then used and was taken to the appropriate depth. Then the small reamer was inserted and advanced until the hub was into the distal end of the fibula and that there was some mild chatter felt distally. The jig was attached to the nail and the nail inserted the drill hole and then impacted down to proper depth. The jig was aligned axially and a wire used to hold it in place. The otr flatbed driver was then inserted at the end of the jig and used to deployed the proximal talons in the fibular canal. Fluoroscopy confirmed full deployment of the talons. The drill guides for the distal interlocking screws were done first. Small stab incisions were made through the skin, drilling was performed, and then the screw inserted and advanced until the head engaged lateral cortex of the fibula. This procedure was also done with the second distal interlocking screw. Next a drill guides for the syndesmotic screws were placed to the appropriate holes in the jig. Small stab incisions were made through the skin and the drill guides brought down to the surface of the fibula. Drilling was done from lateral to medial. The screws were inserted and advanced until the heads engage the lateral cortex of the fibula. The screws were tightened with the ankle in maximum dorsiflexion. Fluoroscopy showed that the screws were placed quad-cortically, and the heads were seated against the lateral cortex of the fibula. Ankle stress was performed and there was no excessive movement of the syndesmosis or the fibular fracture. There is also no gapping of the medial joint space. The jig was removed and the end cap placed on the distal end of the nail. All wounds were thoroughly irrigated with antibiotic saline. Incisions were closed with 3-0 nylon. Arthrex jumpstart and dry sterile dressing were applied to the left ankle. The tourniquet was released and capillary refill returned all digits on the left foot. Anesthesia was reversed and the patient was taken recovery with vital signs stable
[2024-06-30 13:57] VITALS: TEMP 97.7
--- NOTE | 2024-06-30 13:57 | FL ---
Intraoperative/procedural fluoroscopic services were provided for a left ankle ORIF with placement of a fibular intramedullary karrie with transferred to the screws that extend through the distal tibia. Andrade rdware appears in appropriate position. Surrounding soft tissue edema. Total fluoroscopy time is 40.8 minutes with a total of 5 submitted images to PACS. Total DAP 0.46083 mGycm2. Please see the operat chelsea note for further details. [facility], , 06/30/2024 1:54 PM
[2024-06-30] MEDS: HYDROmorphone 0.5 MG/0.5 ML SYRINGE IVP PRN (14:08)
[2024-06-30] MEDS: HYDROcodone/APAP 10-325MG 1 EACH TAB PO ONE (14:58)
[2024-06-30 15:05] VITALS: BP 142/90; PULSE 101; RESP 16
== END 2024-06-30 15:28 | disposition home or self-care (01) ==
LOC: OR 10:32
PROVIDERS: ATTEND Podiatrist
DX: S82.62XA Displaced fracture of lateral malleolus of left fibula, initial encounter for closed fracture (principal); F41.9 Anxiety disorder, unspecified; Z98.84 Bariatric surgery status; Z88.9 Allergy status to unspecified drugs, medicaments and biological substances; Z79.899 Other long term (current) drug therapy; X58.XXXA Exposure to other specified factors, initial encounter
CPT/HCPCS: 73610; 27792; J1100; J0690 ×2; J2405; J3490; J1171; J0665; 81025

== ENCOUNTER 2024-10-20 15:29 | Emergency (ER) | payer OTHER ==
[2024-10-20 16:35] VITALS: RESP 18; TEMP 97.7
--- NOTE | 2024-10-20 16:43 | ED ---
Fall HPI - General Source: patient, RN notes reviewed Mode of arrival: ambulatory Limitations: no limitations <Jacob Patiño - Last Filed: 10/20/24 16:42> - General Source: patient, RN notes reviewed <Lucia Muniz - Last Filed: 10/20/24 19:33> - General Chief Complaint: Fall Stated Complaint: Fall Time Seen by Provider: 10/20/24 15:47 - History of Present Illness Initial Comments: Quick note: This is a 44-year-old female with history of lower extremity neuropathy presenting for slip and fall last night. Patient states she had a trip and fall last night, falling sideways before falling backwards, causing her head to whipped backwards. Denies otherwise striking head or significant injury at the time. Endorses neck pain this morning with associated blurred vision, nausea/vomiting and dry heaving. Denies use of blood thinners. (Jacob Patiño) 44-year-old female with history of lower extremity neuropathy presenting for mechanical fall last night. States she got up to go to the bathroom when she tripped and fell due to her toes curling beneath her, and fell backwards, causing her head to whipped backwards. Denies hitting head or loss of consciousness. States she woke up this morning with neck pain, headache, associated nausea/vomiting, and trouble focusing on the screen at work. Denies blood thinners. States she has chronic neuropathy causing her to fall often. Denies abdominal pain, fevers, diarrhea. (Lucia Muniz) - Related Data Home Medications Medication Instructions Recorded Confirmed diazePAM 10 mg PO DIRECTED PRN 11/03/23 06/30/24 traMADol HCL 50 mg PO BID PRN 11/03/23 06/30/24 Previous Rx's Medication Instructions Recorded HYDROcodone/APAP 10-325MG [[place] 1 tab PO Q6HR PRN 3 Days #12 tab 06/20/24 10-325] Allergies Allergy/AdvReac Type Severity Reaction Status Date / Time fexofenadine [From Ignacia] Allergy Hallucinati Verified 10/20/24 16:35 ons Antihistamines Allergy Hallucinati Uncoded 10/20/24 16:35 ons Review of Systems ROS Other: All systems not noted in ROS Statement are negative. <Jacob Patiño - Last Filed: 10/20/24 16:42> ROS Other: All systems not noted in ROS Statement are negative. <Lucia Muniz - Last Filed: 10/20/24 19:33> ROS Statement: Those systems with pertinent positive or pertinent negative responses have been documented in the HPI. Past Medical History Past Medical History: Musculoskeletal Disorder, Osteoarthritis (OA), Pneumonia Additional Past Medical History / Comment(s): chronic back pain, bulging discs, scoliosis, rolled left ankle last week-wearing boot currently, used to take med for high BP but no longer needed, "white coat syndrome", pneumonia >10 yrs. ago History of Any Multi-Drug Resistant Organisms: None Reported Past Surgical History: Bariatric Surgery, Joint Replacement, Orthopedic Surgery Additional Past Surgical History / Comment(s): Arthroscopic left knee surgery 2011, sinus surgery, ganglion cyst removed, wisdom teeth removed, left knee replacement, lap band surg. Past Anesthesia/Blood Transfusion Reactions: Postoperative Nausea & Vomiting (PONV) Additional Past Anesthesia/Blood Transfusion Reaction / Comment(s): gets emotional when waking up Past Psychological History: Anxiety Smoking Status: Former smoker Past Alcohol Use History: None Reported Past Drug Use History: Marijuana - Past Family History Mother Family Medical History: No Reported History <Jacob Patiño - Last Filed: 10/20/24 16:42> General Exam Limitations: no limitations <Jacob Patiño - Last Filed: 10/20/24 16:42> General appearance: alert, in no apparent distress Head exam: Present: atraumatic, normocephalic, normal inspection Eye exam: Present: normal appearance, PERRL, EOMI. Absent: scleral icterus, conjunctival injection, periorbital swelling GI/Abdominal exam: Present: soft, normal bowel sounds. Absent: distended, tenderness, guarding, rebound, rigid Neurological exam: Present: alert, oriented X3, CN II-XII intact Psychiatric exam: Present: normal affect, normal mood Skin exam: Present: warm, dry, intact, normal color. Absent: rash <Lucia Muniz - Last Filed: 10/20/24 19:33> - General Exam Comments Initial Comments: Visual Physical Exam Vital signs reviewed General: Well-appearing, nontoxic, no acute distress. Head: Normocephalic, atraumatic Eyes: PERRLA, EOMI ENT: Airway patent Chest: Nonlabored breathing Skin: No visual rash, normal skin tone Neuro: Alert and oriented 3 Musculoskeletal: No gross abnormalities (Jacob Patiño) Course Vital Signs 10/20/24 10/20/24 16:30 19:21 Temperature 97.7 F Pulse Rate 117 H 118 H Respiratory 18 18 Rate Blood Pressure 129/84 123/91 O2 Sat by Pulse 99 100 Oximetry Medical Decision Making <Jacob Patiño - Last Filed: 10/20/24 16:42> <Lucia Muniz - Last Filed: 10/20/24 19:33> - Medical Decision Making I completed the quick note portion of this chart signed JIGAR Escobar (Jacob Patiño) Was pt. sent in by a medical professional or institution (ANKITA Medina, DIRECTOR OF EPIDEMIOLOGY, urgent care, hospital, or detention...) When possible be specific @ -No Did you speak to anyone other than the patient for history (EMS, parent, family, police, friend...)? What history was obtained from this source @ -No Did you review nursing and triage notes (agree or disagree)? Why? @ -I reviewed and agree with nursing and triage notes Were old charts reviewed (outside hosp., previous admission, EMS record, old EKG, old radiological studies, urgent care reports/EKG's, detention records)? Report findings @ -No old charts were reviewed Differential Diagnosis (chest pain, altered mental status, abdominal pain women, abdominal pain men, vaginal bleeding, weakness, fever, dyspnea, syncope, headache, dizziness, GI bleed, back pain, seizure, CVA, palpatations, mental health, musculoskeletal)? @ -Differential Musculoskeletal Concussion, intracranial hemorrhage, skull fracture, muscular strain, contusion, ligament sprain, fracture, arthritis, septic arthritis, bursitis, cellulitis, muscle spasm, nerve compression, DVT, arterial occlusion, herpes zoster, electrolyte abnormality, tumor.... This is not meant to be in all inclusive list EKG interpreted by me (3pts min.). @ -None X-rays interpreted by me (1pt min.). @ -None done CT interpreted by me (1pt min.). @ -CT brain and C-spine reveals no acute process U/S interpreted by me (1pt. min.). @ -None done What testing was considered but not performed or refused? (CT, X-rays, U/S, labs)? Why? @ -None What meds were considered but not given or refused? Why? @ -Patient declines pain medications Did you discuss the management of the patient with other professionals (professionals i.e. , PA, DIRECTOR OF EPIDEMIOLOGY, lab, RT, psych nurse, social work assistant, lawyer criminal, teacher, executive vice president and chief operating officer, clinical case manager)? Give summary @ -No Was smoking cessation discussed for >3mins.? @ -No Was critical care preformed (if so, how long)? @ -No Were there social determinants of health that impacted care today? How? (Homelessness, low income, unemployed, alcoholism, drug addiction, transportation, low edu. Level, literacy, decrease access to med. care, snf, rehab)? @ -No Was there de-escalation of care discussed even if they declined (Discuss DNR or withdrawal of care, Hospice)? DNR status @ -No What co-morbidities impacted this encounter? (DM, HTN, Smoking, COPD, CAD, Cancer, CVA, ARF, Chemo, Hep., AIDS, mental health diagnosis, sleep apnea, morbid obesity)? @ -None Was patient admitted / discharged? Hospital course, mention meds given and route, prescriptions, significant lab abnormalities, going to OR and other pertinent info. @ -Discharge. 44-year-old female presenting for headache/neck pain status post mechanical fall last night with associated nausea/vomiting. Patient did not hit head however does endorse whiplash during the fall. No other injuries. Denies blood thinners. Patient is tachycardic, otherwise vital signs unremarkable. Neurological examination unremarkable. Provided with Zofran for nausea. Patient declines pain medications. CT brain and C-spine reveals no acute process. C-collar was removed and results were discussed with patient. Upon reevaluation, patient remains tachycardic. Discussed with patient that her heart rate remains high and I recommend further testing at this time such as EKG. Patient denies chest pain or shortness of breath. Patient states she believes she is tachycardic because she is very anxious sitting in the hallway and continues to experience a headache. Discussed with patient that I will discharge her home however advised her to keep an eye on her heart rate tonight at home and if heart rate continues to be above 100 bpm or new or worsening symptoms develop she must return to the ER immediately. Patient is agreeable to this plan. Patient can be safely discharged home with strict return precautions and follow-up care. Case was discussed with my ED attending Dr. Whiting. Undiagnosed new problem with uncertain prognosis? @ -No Drug Therapy requiring intensive monitoring for toxicity (Heparin, Nitro, Insulin, Cardizem)? @ -No Were any procedures done? @ -No Diagnosis/symptom? @ -Whiplash Acute, or Chronic, or Acute on Chronic? @ -Acute Uncomplicated (without systemic symptoms) or Complicated (systemic symptoms)? @ -Uncomplicated Side effects of treatment? @ -No Exacerbation, Progression, or Severe Exacerbation? @ -No Poses a threat to life or bodily function? How? (Chest pain, [place], NM, pneumonia, PE, COPD, DKA, ARF, appy, cholecystitis, CVA, Diverticulitis, Homicidal, Suicidal, threat to staff... and all critical care pts) @ -No (Lucia Muniz) Disposition <Jacob Patiño - Last Filed: 10/20/24 16:42> Is patient prescribed a controlled substance at d/c from ED?: No Time of Disposition: 19:29 <Lucia Muniz - Last Filed: 10/20/24 19:33> Clinical Impression: Acute whiplash injury Disposition: HOME SELF-CARE Condition: Stable Instructions (If sedation given, give patient instructions): Cervical Strain (ED) Additional Instructions: Use Zofran as needed for nausea. Please continue to monitor your heart rate at home. If your heart rate continues to be 100 or above, please return to the ER. Please return to the Emergency Department if symptoms worsen or any other concerns. Referrals: Concepcion Connolly MD [Primary Care Provider] - 1-2 days
--- NOTE | 2024-10-20 18:14 | CT ---
EXAMINATION TYPE: CT brain lorenaine wo con DATE OF EXAM: 10/20/2024 COMPARISON: CT brain 2009 CLINICAL INDICATION: Female, 44 years old with history of Neck pain, vision change, N/V, fall last ni ght, FALL, HIT BACK OF HEAD, TECHNIQUE: CT scan of the head and cervical spine are performed without contrast. CT DLP: 1590.8 mGycm. Automated Exposure Control for Dose Reduction was Utilized. FINDINGS: There is no acute intracranial hemorrhage, mass effect, or midline shift identified. The ventricles and sulci are within normal limits in size for patient's age. The calvarium is intact. Th e globes are intact and the visualized sinuses are clear. Cervical spine is visualized in its entirety from C1 through upper thoracic levels and demonstrates l evoconvex scoliosis centered in the upper thoracic spine without evidence of acute fracture or disloc ation. Prevertebral soft tissue appears within normal limits. The C1-C2 articulation is within norm al limits on coronal images. Vertebral body heights are maintained. Moderate disc space narrowing an d mild anterior spurring at C4-C5 level is present. Thyroid gland is normal in size. Lung apices are clear without pneumothorax. IMPRESSION: 1. There is no acute fracture or dislocation evident in the cervical spine. 2. No acute intracranial hemorrhage or midline shift is seen. [facility], , 10/20/2024 6:12 PM
[2024-10-20 19:22] VITALS: BP 123/91; PULSE 118
[2024-10-20] MEDS: ONDANSETRON 4 MG ODT STARTER PACK 2 TAB BTL PO STA (19:38)
== END 2024-10-20 19:45 | disposition home or self-care (01) ==
LOC: EC 15:29
DX: S13.4XXA Sprain of ligaments of cervical spine, initial encounter (principal); Z88.8 Allergy status to other drugs, medicaments and biological substances; Z87.891 Personal history of nicotine dependence; W01.0XXA Fall on same level from slipping, tripping and stumbling without subsequent striking against object, initial encounter
CPT/HCPCS: 72125; 70450; 99283; S0119